=== PATIENT | female | born 1990 | race Caucasian/White ===

== ENCOUNTER 2023-12-11 14:40 | Emergency (ER) | payer OTHER ==
[~2023-12-11] VITALS: Ht 162.6 cm; Wt 69.1 kg
[2023-12-11 14:57] VITALS: BP 109/66; PULSE 89; RESP 18; TEMP 98.3
[2023-12-11] MEDS ORDERED: [UNRECOGNIZED DRUG - CODE] PO (15:18)
[2023-12-11] MEDS ORDERED: IBUP-2213 PO (15:18)
== END 2023-12-11 15:23 | disposition home or self-care (01) ==
LOC: MED 14:40
DX: O91.23 Nonpurulent mastitis associated with lactation (principal); Z79.1 Long term (current) use of non-steroidal anti-inflammatories (NSAID); Z79.2 Long term (current) use of antibiotics
CPT/HCPCS: 81002; 81025; 99283